=== PATIENT | female | born 1995 | race Caucasian/White ===

== ENCOUNTER 2017-09-02 07:15 | Inpatient (IN) ==
[2017-09-03 20:21] VITALS: RESP 16
[2017-09-04 08:35] VITALS: BP 99/69; PULSE 72; TEMP 98.4
== END 2017-09-04 11:00 | disposition home or self-care (01) ==
LOC: HOBED 07:15 → H2E 09:14 → H1EA 14:57
PROVIDERS: ADMIT Obstetrics & Gynecology; ATTEND Obstetrics & Gynecology